=== PATIENT | male | born 1930 | race Caucasian/White ===

== ENCOUNTER → 2017-05-07 08:16 | Outpatient (CLI) | payer MEDICARE, OTHER ==
[2013-01-09 07:56] VITALS: BMI 23.9
== END | disposition home or self-care (01) ==
LOC: D.RT 08:16
DX: R94.2 Abnormal results of pulmonary function studies (principal)

== ENCOUNTER → 2017-05-29 07:25 | Outpatient (CLI) | payer MEDICARE, OTHER ==
[~2017-05-29] VITALS: Ht 172.7 cm; Wt 69.1 kg
--- NOTE | ~2017-05-29 | HEMODYNAMI ---
PATIENT:CHELO BURROUGHS MEDICAL RECORD: [id number] : [birth year] LOCATION:D.CAT ADMISSION DATE: 05/29/17 Generatedon:05/29/20179:31 Patient name: CHELO BURROUGHS Patient #: [id number] SSN: : 1930 Date of study: 05/29/2017 Page: Of Hemodynamic Procedure Report Patient Data Patient Demographics Procedure consent was obtained First Name: CHELO Gender: Male Last Name: HEIKE : 1930 Middle Initial: M Age: 86 year(s) Patient #: [id number] Race: Unknown Additional ID: [id number] Contact details [address]: [address] [place] [address] DRIVE State: [place] City: [place] Zip code: [address] Past Medical History Allergies Allergen Reaction Date Comments Reported Codeine 05/29/2017 Admission Admission Data Admission Date: 05/29/2017 Admission Time: 7:25 Lab Results Lab Result Date: 05/29/2017 Lab Result Time: 0:00 Biochemistry Name Units Result Min Max Creatinine mg/dl 6.8 --(----)-* 0.6 1.3 CBC Name Units Result Min Max Hemoglobin g/dl 12.1 *-(----)-- 13.5 17.5 Procedure Procedure Types Cath Procedure Diagnostic Procedure [facility] w/Coronaries Miscellaneous Procedures Moderate Sedation up to 15 minutes Procedure Description Procedure Date Procedure Date: 05/29/2017 Procedure Start Time: 9:22 Procedure End Time: 9:30 Procedure Staff Name Function Simone Espinal MD Performing Physician Alis Holt RT Scrub Jose Nicholas RT Scrub Kain Saravia RN Nurse Radha Bautista RT Monitor Procedure Data Cath Procedure Fluoroscopy Diagnostic fluoroscopy Total fluoroscopy Time: 1.3 time: 1.3 min min Diagnostic fluoroscopy Total fluoroscopy dose: 452 dose: 452 mGy mGy Contrast Material Contrast Material Type Amount (ml) Isovue 300 57 Entry Location Entry Primary Successful Side Size Upsize Upsize Entry Closure Mcdonough ccessful Closure Location (Fr) 1 (Fr) 2 (Fr) Remarks Device Remarks Radial Right 6 Fr Mechanical artery Short Compression Estimated blood loss: 5 ml Diagnostic catheters Device Type Used For End Catheter Placement Diagnostic Terumo 5Fr LV Angiography [place] 110cm catheter Diagnostic Terumo 5Fr Left Coronary [place] 110cm catheter Angiography Diagnostic Terumo 5Fr Right Coronary [place] 110cm catheter Angiography Procedure Complications No complications Procedure Medications Medication Administration Route Dosage Oxygen NC 2 l/min Heparin Flush Bag added to field 2 bags (1000units/500ml NS) 0.9% NaCl I.V. 100 ml/hr Radial Cocktail added to field 1 syringe (Verapomil 2mg/Nitro 400mcg/Heparin 1500units) Fentanyl I.V. 25 mcg Versed I.V. 0.5 mg Radial Cocktail I.A. 1 syringe (Verapomil 2mg/Nitro 400mcg/Heparin 1500units) Hemodynamics Rest HGB: 12.1 (g/dl) Heart Rate: 71 (bpm) Snapshots Pre Cath Intra NCS Post Cath Vital Signs Time Heart Resp SPO2 etCO2 [id number] NIBP (mmHg) Rhythm Pain Sedation Rate (ipm) (%) (mmHg) (mmHg) Status Level (bpm) 9:10:10 71 16 99 0 0 170/90(144) NSR 0 (11) 10(A) , No pain 9:14:27 68 16 100 0 0 154/87(119) NSR 0 (11) 10(A) , No pain 9:18:47 68 17 99 0 0 140/84(120) NSR 0 (11) 10(A) , No pain 9:23:03 69 18 97 0 0 141/78(112) NSR 0 (11) 9(A) , No pain 9:27:13 71 17 97 0 0 121/59(93) NSR 0 (11) 9(A) , No pain 9:29:12 73 17 97 0 0 122/65(92) NSR 0 (11) 9(A) , No pain Medications Time Medication Route Dose Verified Delivered Reason Notes E ffectiveness by by 9:11:12 Oxygen NC 2 l/min Kain Finnegan Per Manjit Saravia RN physician RN 9:11:21 Heparin Flush added 2 bags Kain Finnegan used for Bag to Manjit Saravia russian teacher (1000units/500ml field RN NS) 9:11:30 0.9% NaCl I.V. 100 Kain Finnegan Per ml/hr Manjit Saravia RN physician RN 9:11:39 Radial Cocktail added 1 Kain Finnegan used for (Verapomil to syringe Manjit Saravia RN procedure 2mg/Nitro field RN 400mcg/Heparin 1500units) 9:20:44 Fentanyl I.V. 25 mcg Kain Finnegan for sedation Manjit Saravia RN RN 9:20:53 Versed I.V. 0.5 mg Kain Finnegan for sedation Manjit Saravia RN RN 9:23:31 Radial Cocktail I.A. 1 Kain Nichols for (Verapomil syringe Manjit Espinal MD vasodilation 2mg/Nitro RN 400mcg/Heparin 1500units) Procedure Log Time Note 8:51:22 Kain Saravia RN sent for patient. Start room use. 8:56:23 Time tracking: Regular hours 8:56:28 Plan of Care:Hemodynamics will remain stable., Cardiac rhythm will remain stable., Comfort level will be maintained., Respiratory function will remain adequate., Patient/ family verbilizes understanding of procedure., Procedure tolerated without complication., Recovers from procedure without complications.. 9:01:38 Patient received from Pre/Post Procedure Room to [facility] 1 Alert and oriented. Tansferred to table in Supine position. 9:01:39 Warm blankets applied, and joaquin hugger turned on for patient comfort. 9:01:39 Correct patient and procedure confirmed by team. 9:01:41 Signed procedure consent form obtained from patient. 9:01:42 ECG and BP/O2 sat monitors applied to patient. 9:01:42 Full Disclosure recording started 9:08:15 Vital chart was started 9:11:12 Oxygen 2 l/min NC was administered by Kain Saravia RN; Per physician; 9:11:21 Heparin Flush Bag (1000units/500ml NS) 2 bags added to field was administered by Kain Saravia RN; used for procedure; 9:11:30 Baseline sample Acquired. 9:11:30 0.9% NaCl 100 ml/hr I.V. was administered by Kain Saravia RN; Per physician; 9:11:39 Radial Cocktail (Verapomil 2mg/Nitro 400mcg/Heparin 1500units) 1 syringe added to field was administered by Kain Saravia RN; used for procedure; 9:11:55 Rhythm: sinus rhythm 9:12:04 H&P Date Dictated: 05/28/2017 Within 30 days and on chart., H&P Addendum completed by physician on day of procedure. (MUST COMPLETE FOR ALL OUTPATIENTS). 9:12:05 Pre-procedure instructions explained to patient. 9:12:05 Pre-op teaching completed and patient verbalized understanding. 9:12:07 Family in waiting room. 9:12:08 Patient NPO since Midnight. 9:12:16 Patient allergic to Codeine 9:12:18 Is the patient allergic to Iodine/contrast media? No. 9:12:19 Is patient on blood thinner?No 9:12:30 Patient diabetic? No. 9:12:34 Previous problem with sedation/anesthesia? No ? 9:12:36 Snore? Yes 9:12:39 Sleep apnea? No 9:12:40 Deviated septum? No 9:12:40 Opens mouth fully? Yes 9:12:41 Sticks out tongue? Yes 9:12:45 Airway obstruction? Yes COPD 9:12:48 Dentures? No ? 9:12:53 Pre procedure: right dorsailis pedis pulse 1+ Palpable, but thready & weak; easily obliterated 9:12:54 Modified Michele's test Ulnar < 7 seconds 9:12:56 Patient pain scale 0/10 ?. 9:13:13 IV patent on arrival in left antecubital with 0.9% NaCl at KVO. 9:13:31 Lab Result : Creatinine 6.8 mg/dl 9:13:31 Lab Result : Hemoglobin 12.1 g/dl 9:13:46 Lab results completed and on chart. 9:13:48 Right Radial & Right Groin area was prepped with chlora-prep and draped in sterile fashion 9:13:49 Alarms reviewed by R. N. 9:13:50 Sharps counted by scrub and verified by R.N. 9:13:52 Use device set Radial Dx 9:13:53 Acist Syringe opened to sterile field. 9:13:53 Medline Cath Pack opened to sterile field. 9:13:54 Bag Decanter opened to sterile field. 9:13:54 Terumo 6Fr Slender Glidesheath opened to sterile field. 9:13:55 St Girish 260cm J .035 wire opened to sterile field. 9:13:55 Acist Hand Control opened to sterile field. 9:13:56 Acist Manifold opened to sterile field. 9:13:57 Tegaderm 4 x 4 opened to sterile field. 9:13:58 MBrace Wrist Support opened to sterile field. 9:17:14 Physician paged 9:18:05 Zero performed for pressure channel P1 9:20:12 Final Timeout: patient, procedure, and site verified with staff and physician. All members of the team are in agreement. 9:20:14 Right Radial site verified by team. 9:20:18 Physical assessment completed. ASA score P 2 - A patient with mild systemic disease as per Simone Espinal MD. 9:20:21 Sedation plan: IV Moderate Sedation Versed, Fentanyl 9:20:44 Fentanyl 25 mcg I.V. was administered by Kain Saravia RN; for sedation; 9::53 Versed 0.5 mg I.V. was administered by Kain Saravia RN; for sedation; 9:21:54 Procedure started. 9:22:03 Local anesthetic to right radial artery with Lidocaine 2% by Simone Espinal MD.INITIAL ACCESS ONLY 9:22:47 A 6 Fr Short sheath was inserted into the Right Radial artery 9:23:28 A Diagnostic Terumo 5Fr [place] 110cm catheter was advanced over the wire and used for LV Angiography. 9:23:31 Radial Cocktail (Verapomil 2mg/Nitro 400mcg/Heparin 1500units) 1 syringe I.A. was administered by Simone Espinal MD; for vasodilation; 9:24:21 LV gram done using LR 9:24:25 EF : 50 % 9:24:28 Injector settings: Ml/sec: 5, Volume: 15, 9:24:41 A Diagnostic Terumo 5Fr [place] 110cm catheter was advanced over the wire and used for Left Coronary Angiography. 9:26:04 A Diagnostic Terumo 5Fr [place] 110cm catheter was advanced over the wire and used for Right Coronary Angiography. 9:26:17 Catheter removed. 9:26:34 Sheath removed intact; hemostasis achieved with Mechanical Compression to the Right Radial artery. 9:26:36 Procedure ended.(Physican Out) 9:26:48 Fluoroscopy time 01.30 minutes. 9::51 Fluoroscopy dose: 452 mGy 9:26:51 Flurop Dose total: 452 9::58 Contrast amount:Isovue 300 57ml. 9::59 Sharps counted by scrub and verified by R.N. 9:27:01 TR band inflated with 12cc of air. 9:27:03 Insertion/operative site no bleeding no hematoma. 9:27:12 Post right radial artery:stable, clean and dry 9:27:14 Post Procedure Pulses reassessed and unchanged 9:27:17 Post-procedure physical assessment completed. ASA score P 2 - A patient with mild systemic disease as per Simone Espinal MD. 9:27:24 Post procedure rhythm: unchanged. 9:27:28 Estimated blood loss: 5 ml 9:27:29 Post procedure instruction explained to patient.Patient verbalizes understanding. 9:27:30 Patient needs reinforcement of post procedure teaching. 9:27:42 Procedure type changed to Cath procedure, Diagnostic procedure, LHC, LHC w/Coronaries, Miscellaneous Procedures, Moderate Sedation up to 15 minutes 9:27:47 Procedure Complication : No complications 9:27:50 See physician's report for complete and final results. 9:28:14 Terumo TR Band Standard opened to sterile field. 9:28:39 Procedure and supply charges have been captured, reviewed, submitted and are correct. 9:30:30 Vital chart was stopped 9:30:33 Report given to Pre/Post Procedure Room. 9:30:37 Patient transfered to Pre/Post Procedure Room with Stretcher. 9:30:45 Procedure ended. 9:30:45 Full Disclosure recording stopped 9:30:49 End room use (Document Last) Device Usage Item Name Manufacture Quantity Catalog Hospital Part Current Minimal Lot# / Number Charge Number Stock Stock Serial# Code Acist Acist 1 18864 [id number] [id number] [id number] 20 Syringe [employer] Inc Medline Cardinal 1 [id number] 63166 073725 5 Cath Pack Health Bag Microtek 1 [id number] 93820 707350 5 [employer] Terumo 6Fr Terumo 1 [id number] 210596 895606 035330 [address] Girish 1 484773 665109 167515 923443 30 260cm J .035 wire Acist Hand Acist 1 55413 095631 933599 106320 5 Control [employer] Inc Acist Acist 1 41252 477060 463077 390290 5 Manifold Medical [employer] Inc Tegaderm 4 3M 1 1626W 974756 401644 858625 5 x 4 MBrace Advanced 1 140-0250-00 601710 44547 960689 5 Wrist Vascular Support Dynamics Diagnostic Terumo 1 53-5463 406744 337794 704540 5 Terumo 5Fr [place] 110cm catheter Terumo TR Terumo 1 [id number] 433973 759094 602018 40 Band Standard Signature Audit [place] Stage Time Signature Unsigned Intra-Procedure 05/29/2017 Rdaha 9:31:00 AM Counts RT(R) Signatures Monitor : Radha Signature : Counts RT Date : Time : [place] [address] [place] [address]
[~2017-05-29 07:25] MED LIST: COREG12.5 MG PO; FUROSEMIDE40 MG PO; IPRAT-ALBUT 0.5-3 ML UPD; NEURONTIN 300300 MG PO; PAMELOR10 MG PO; PULMICORT0.5 MG/21 INH; RENA-VITE TABL0.8 MG PO; RENVELA800 MG PO; SINGULAIR10 MG PO; ZOCOR10 MG PO
[2017-05-29 08:00] VITALS: BP 173/76; Ht 172.7 cm; Wt 69.1 kg
[2017-05-29 08:03] LABS: BASOPHILS 0.3 % (0-2); EOSINOPHILS 7.3 % (0-7); HEMATOCRIT 36.6 % (42.0-54.0); HEMOGLOBIN 12.1 g/dL (13.5-17.5); IMMATURE GRANULOCYTES 0.1 % (0-5); LYMPHOCYTES 12.5 % (15-50); MCH 31.8 pg (26.0-34.0); MCHC 33.1 g/dL (31.0-37.0); MCV 96.1 fL (80.0-100.0); MEAN PLATELET VOLUME 9.5 fL (7.4-10.4); MONOCYTES 11.1 % (2-11); NEUTROPHILS 68.7 % (40-80); PLATELET COUNT 177 10x3/uL (130-400); RBC 3.81 10x6/uL (4.20-6.10); RDW 12.1 % (11.5-14.5); WBC 7.3 10x3/uL (4.8-10.8)
[2017-05-29 08:19] LABS: ANION GAP 14.2 mmol/L (8-16); CARBON DIOXIDE 27.1 mmol/L (21.0-32.0); CREATININE - SERUM 6.3 mg/dL (0.6-1.3); POTASSIUM - SERUM 4.3 mmol/L (3.5-5.1)
--- NOTE | 2017-05-29 10:17 | NUR ---
0955 RESTING WITH EYES CLOSED, NC APPLIED 2L WHILE SLEEPING. NO RESP DISTRESS. NSR RATE 61 W NO C/O CHEST PAIN. PULSES PALP X 4. R WRIST TR BAND C/D/I WITH NO HEMATOMA OR BLEEDING. EATING ICE CHIPS WITH NO C/O NAUSEA. FAMILY AT BEDSIDE.
--- NOTE | 2017-05-29 10:45 | NUR ---
1045 VSS WITH CHEST PAIN DENIED REPOSITIONED TO SITTING WITH HOB UP 30 DEGREES. SANDWICH AND SODA TO BEDSIDE NAUSEA DENIED 1100 2 CC AIR REMOVED FROM TR BAND WITH NO BLEEDING NO HEMATOMA NOTED. 1115 2 CC AIR REMOVED FROM TR BAND NO BLEEDING NOTED
--- NOTE | 2017-05-29 11:22 | NUR ---
4 CC AIR REMOVED FROM TR BAND WITH NO BLEEDING NO HEMATOMA NOTED. PIV REMOVED WITH DRESSING APPLIED. VERBAL AND WRITTEN DISCHARGE GONE OVER WITH PATIENT AND FAMILY. UP TO GET DRESSED FOR DISCHARGE HOME
--- NOTE | 2017-05-29 12:03 | NUR ---
TRANSPORTED VIA WC TO PARKING FOR DISCHARGE HOME WITH FAMILY CHEST PAIN DENIED R/WRIST CDI
--- NOTE | 2017-05-30 12:22 | OP ---
PATIENT NAME: CHELO BURROUGHS MEDICAL RECORD: [id number] :[birth year] LOCATION:D.CAT ADMISSION DATE: SURGEON: NANCY PATTON MD DATE OF OPERATION: 05/29/2017 PROCEDURES: 1. Left heart catheterization. 2. Selective coronary angiography. 3. Left ventriculogram. INDICATION: Angina and coronary artery disease. PROCEDURE IN DETAIL: After informed consent was obtained and after detailed explanation of risks, benefits as well as alternative therapies, the patient elected to proceed with angiogram and heart catheterization. The right radial area was prepped and draped in normal sterile fashion. The right radial artery was cannulated via modified Seldinger technique with the placement of 5-Yi sheath. All catheters exchanged through this sheath. FINDINGS: The left ventriculogram was performed in standard 30-degree LR view reveals preserved cardiac wall motion, ejection fraction 50%. SELECTIVE CORONARY ANGIOGRAPHY: Left main, left anterior descending, left circumflex, right coronary are all with only mild irregularities, no flow-limiting stenosis. OVERALL IMPRESSION: Minimal coronary artery disease is present, only mild irregularities, no flow-limiting stenosis. Chest pain is noncardiac in etiology. TRANSINT:[id number] Voice Confirmation ID: [id number] DOCUMENT ID: [id number] NANCY PATTON MD at 1222 CC: [id number] DICTATION DATE: 05/29/17928 [employer]NON FIRE DIRECTION SPECIALIST: 05/29/17 1056 DEP CLI 05/29/[address] [address]
== END | disposition home or self-care (01) ==
LOC: D.CATH 07:25
PROVIDERS: Internal Medicine Interventional Cardiology
DX: I25.119 Atherosclerotic heart disease of native coronary artery with unspecified angina pectoris (principal); R06.02 Shortness of breath; I10 Essential (primary) hypertension; E78.5 Hyperlipidemia, unspecified; Z01.812 Encounter for preprocedural laboratory examination

== ENCOUNTER 2017-09-11 08:08 | Inpatient (IN) | payer MEDICARE, OTHER ==
[~2017-09-11] VITALS: Ht 172.7 cm; Wt 70.1 kg
--- NOTE | ~2017-09-11 | HP ---
PATIENT: CHELO BURROUGHS MEDICAL RECORD: [id number] ACCOUNT: [id number] LOCATION:[address] : [birth year] ADMISSION DATE: 09/11/17 HISTORY AND PHYSICAL EXAMINATION ADMISSION HISTORY AND PHYSICAL HISTORY OF PRESENT ILLNESS: An 86-year-old male brought in by EMS after a fall. No reported loss of consciousness - unknown downtime, C-collar is in place. He was cleared for spinal injury with a CT of the head and neck. The patient is an end-stage renal patient - on peritoneal dialysis, history of COPD, hypertension, and has been on peritoneal dialysis 2+ years. CURRENT MEDICATIONS: Listed as Coreg, gabapentin, simvastatin, nortriptyline, Lasix, Claritin, Renvela, Eryn-Lizet, Singulair, updrafts 3 different types twice daily. PAST SURGICAL HISTORY: He has had a general decline per his since starting dialysis but acute episodes of falls, weakness in the last several days with a fall this morning with reported loss of consciousness. REVIEW OF SYSTEMS: GENERAL: Denies any change in appetite. No reported change in weight. HEENT: Denies cephalalgia. Denies dysphagia, dizziness, and visual change prior to his fall. CARDIOVASCULAR: Denies chest pain, denies palpitations. PULMONARY: Denies hemoptysis, denies night sweats. GASTROINTESTINAL: Denies hematemesis, hematochezia or melena. GENITOURINARY: Denies any significant changes, is on peritoneal dialysis. MUSCULOSKELETAL: Generalized weakness, progressively worse. PHYSICAL EXAMINATION: VITAL SIGNS: Temp 96.9, blood pressure is 157/69, heart rate 90, respirations 20, O2 sats 95% with oxygen at 2 liters via nasal cannula. HEENT: Head normocephalic, atraumatic. Eyes: Pupils are equally round and reactive. Ears: Canals patent. TMs are intact. Nose: Nares patent without drainage. Throat: No erythema, no exudates. NECK: Supple. No lymphadenopathy, no JVD. HEART: Regular rate and rhythm. No S3, no S4, no rub. LUNGS: Clear to auscultation bilaterally. Breathing is nonlabored. ABDOMEN: Soft, nontender. Bowel sounds all 4 quadrants. EXTREMITIES: Present times 4, no edema. NEUROLOGIC: No focal deficits appreciated. LABORATORY DATA: EKG shows sinus rhythm with PACs, left bundle-branch block, rate of 92. CT of the head and neck reported as negative. CBC: Hemoglobin 11.8, hematocrit 34.4. Chemistry shows a creatinine of 9.7, potassium 3.9, sodium 136, chloride 96, and bicarbonate 26.2. LFTs normal. HISTORY AND PHYSICAL [id number] CHELO BURROUGHS ASSESSMENT AND PLAN: Generalized weakness, progressive decline, end-stage renal disease - on peritoneal dialysis, fall with reported syncope, superficial skin tears, and mild anemia. The patient is admitted. We will consult nephrology. Supportive care. Consult case management. Resume home medications. TRANSINT:[id number] Voice Confirmation ID: [id number] DOCUMENT ID: [id number] CHANDU VELIZ DO at 0739 CC: [id number] DICTATION DATE: 09/11/171899 DERMATOLOGY PROCEDURAL PHYSICIAN: 09/11/172038 ADM IN [facility] [address] [id number]
--- NOTE | ~2017-09-11 | DS ---
PATIENT:CHELO BURROUGHS :[birth year] MEDICAL RECORD: [id number] DISCHARGE SUMMARY ADMISSION DATE: 09/12/17 DISCHARGE DATE: 09/13/17 ADMISSION DIAGNOSES: Generalized weakness, progressive decline, end-stage renal disease, on peritoneal dialysis, fall with reported syncope, superficial skin tears, mild anemia. DISCHARGE DIAGNOSES: Generalized weakness, progressive decline, end-stage renal disease, on peritoneal dialysis, fall with reported syncope, superficial skin tears, chronic anemia. CONSULTS: Dr. Thakur, nephrology. HOSPITAL COURSE: The patient had an eventful hospital course. He was cleared for head and neck injury with CT. Nephrology consulted for his peritoneal dialysis. With his progressive decline, nephrology arranged for rehab placement with nephrology monitoring his peritoneal dialysis. The patient discharged to rehab in stable condition. Agree with nephrology assessment. See chart for further details. TRANSINT:[id number] Voice Confirmation ID: [id number] DOCUMENT ID: [id number] CHANDU VELIZ DO at 0809 CC: [id number] DICTATION DATE: 10/12/17 1507 AUTOMOTIVE FUEL INJECTION SERVICER: 10/13/17 0949 DIS IN 09/13/17 [facility] [address] [place] [address]
[2017-09-11 08:54] LABS: BASOPHILS 0.2 % (0-2); EOSINOPHILS 1.3 % (0-7); HEMATOCRIT 34.4 % (42.0-54.0); HEMOGLOBIN 11.8 g/dL (13.5-17.5); IMMATURE GRANULOCYTES 1.3 % (0-5); LYMPHOCYTES 8.6 % (15-50); MCH 32.2 pg (26.0-34.0); MCHC 34.3 g/dL (31.0-37.0); MCV 93.7 fL (80.0-100.0); MEAN PLATELET VOLUME 10.2 fL (7.4-10.4); NEUTROPHILS 83.6 % (40-80); PLATELET COUNT 143 10x3/uL (130-400); RBC 3.67 10x6/uL (4.20-6.10); RDW 12.4 % (11.5-14.5); WBC 12.3 10x3/uL (4.8-10.8)
[2017-09-11 09:11] LABS: ALBUMIN 2.6 g/dL (3.4-5.0); ANION GAP 17.7 mmol/L (8-16); BILIRUBIN - TOTAL 0.61 mg/dL (0.2-1.3); CALCIUM 8.5 mg/dL (8.5-10.1); CARBON DIOXIDE 26.2 mmol/L (21.0-32.0); CREATININE - SERUM 9.7 mg/dL (0.6-1.3); POTASSIUM - SERUM 3.9 mmol/L (3.5-5.1); PROTEIN - SERUM 5.2 g/dL (6.4-8.2)
[2017-09-11 09:58] LABS: APPEARANCE HAZY (CLEAR); COLOR YELLOW (YELLOW); GLUCOSE 50 mg/dL (NEGATIVE); KETONE NEGATIVE (NEGATIVE); NITRITE NEGATIVE (NEGATIVE); PROTEIN TRACE mg/dL (NEGATIVE); SPECIFIC GRAVITY 1.015 (1.005-1.020)
[2017-09-11 09:59] LABS: BILIRUBIN NEGATIVE (NEGATIVE); UROBILINOGEN NORMAL (NORMAL)
[2017-09-11 10:01] LABS: BACTERIA FEW /hpf (NONE SEEN); EPITHELIAL CELLS 0-5 /hpf (0-5); WHITE CELLS - URINE 0-5 /hpf (0-5)
[2017-09-11 10:02] LABS: AMORPHOUS SEDIMENT >1+ /lpf (NONE SEEN)
[2017-09-11] MEDS ORDERED: NORVASC2.5 MG PO (20:44)
[2017-09-11] MEDS ORDERED: VITAMIN D31000 UNIT PO (20:45)
[2017-09-11] MEDS ORDERED: STERAPRED DS 1210 MG PO (20:46)
[2017-09-11] MEDS ORDERED: MEGACE400 MG/10 PO (20:46)
[2017-09-11 23:25] VITALS: BP 119/72
[2017-09-12] VITALS (7 sets, daily range): BP systolic 96–153; BP diastolic 30–72; Ht 172.7 cm; Wt 70.1 kg
[2017-09-12 04:55] LABS: BASOPHILS 0.1 % (0-2); EOSINOPHILS 2.1 % (0-7); HEMOGLOBIN 11.6 g/dL (13.5-17.5); IMMATURE GRANULOCYTES 0.9 % (0-5); LYMPHOCYTES 8.3 % (15-50); MCHC 34.1 g/dL (31.0-37.0); MCV 93.7 fL (80.0-100.0); MEAN PLATELET VOLUME 10.2 fL (7.4-10.4); MONOCYTES 12.5 % (2-11); NEUTROPHILS 76.1 % (40-80); PLATELET COUNT 141 10x3/uL (130-400); RBC 3.63 10x6/uL (4.20-6.10); RDW 12.4 % (11.5-14.5); WBC 12.8 10x3/uL (4.8-10.8)
[2017-09-12 05:10] LABS: ANION GAP 18.1 mmol/L (8-16); CALCIUM 8.4 mg/dL (8.5-10.1); CREATININE - SERUM 10.7 mg/dL (0.6-1.3); POTASSIUM - SERUM 4.3 mmol/L (3.5-5.1)
[2017-09-12 05:14] LABS: CARBON DIOXIDE 26.2 mmol/L (21.0-32.0)
[2017-09-13 00:29] VITALS: BP 115/46
[2017-09-13 04:17] VITALS: BP 100/58
[2017-09-13 06:29] LABS: BASOPHILS 0 % (0-2); EOSINOPHILS 2.9 % (0-7); HEMATOCRIT 33.5 % (42.0-54.0); HEMOGLOBIN 11.4 g/dL (13.5-17.5); LYMPHOCYTES 4.6 % (15-50); MCH 31.8 pg (26.0-34.0); MCV 93.3 fL (80.0-100.0); MEAN PLATELET VOLUME 10.1 fL (7.4-10.4); MONOCYTES 13.5 % (2-11); PLATELET COUNT 125 10x3/uL (130-400); RBC 3.59 10x6/uL (4.20-6.10); RDW 12.3 % (11.5-14.5); WBC 12.1 10x3/uL (4.8-10.8)
[2017-09-13 06:57] LABS: ANION GAP 16.9 mmol/L (8-16); CALCIUM 8.6 mg/dL (8.5-10.1); CARBON DIOXIDE 28.1 mmol/L (21.0-32.0); MAGNESIUM - SERUM 1.9 mg/dL (1.8-2.4); PHOSPHOROUS 8.5 mg/dL (2.5-4.9)
[2017-09-13 08:00] VITALS: BP 120/55
[2017-09-13 12:00] VITALS: BP 124/79
[2017-09-13] MEDS ORDERED: CEFTRIAXONE1 G/VIAL IM (14:24)
[2017-09-13] MEDS ORDERED: BROVANA15 MCG/2 M INH (14:24)
[2017-09-13] MEDS ORDERED: FEXOFENADINE HC60 MG PO (14:24)
[2017-09-13] MEDS ORDERED: RESTORIL7.5 MG PO (14:24)
[2017-09-13] MEDS ORDERED: DULCOLAX10 MG/SUPP RC (14:25)
[2017-09-13] MEDS ORDERED: PROCALAMINE I1000 ML IV (14:25)
[2017-09-13] MEDS ORDERED: FLORAJEN3 CAPS460 MG PO (14:25)
[2017-09-13] MEDS ORDERED: [UNRECOGNIZED DRUG - OTHER] IP (14:37)
[2017-09-13 16:00] VITALS: BP 115/66
== END 2017-09-13 20:07 | DRG 682 ==
LOC: D.ER 08:08 → D.M2 17:40 → OBSVTIME 17:40 → D.M2 09-12 11:35
PROVIDERS: Emergency Medicine; Family Medicine
DX: I12.0 Hypertensive chronic kidney disease with stage 5 chronic kidney disease or end stage renal disease (principal); N18.6 End stage renal disease; J18.9 Pneumonia, unspecified organism; J44.0 Chronic obstructive pulmonary disease with (acute) lower respiratory infection; Z99.2 Dependence on renal dialysis; D64.9 Anemia, unspecified; I44.7 Left bundle-branch block, unspecified; R13.10 Dysphagia, unspecified; G62.9 Polyneuropathy, unspecified; W19.XXXA Unspecified fall, initial encounter; Z91.81 History of falling

== ENCOUNTER 2017-09-13 20:34 | Inpatient (IN) | payer MEDICARE, OTHER ==
[~2017-09-13] VITALS: Ht 172.7 cm; Wt 68.9 kg
--- NOTE | ~2017-09-13 | DS ---
PATIENT:CHELO BURROUGHS :[birth year] MEDICAL RECORD: [id number] DISCHARGE SUMMARY ADMISSION DATE: 09/13/17 DISCHARGE DATE: 09/22/17 This is a discharge dated 09/22/2017 from inpatient rehab. 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 SECONDARY DIAGNOSES: 1. End-stage renal disease, on peritoneal dialysis. 2. COPD. 3. Peripheral vascular disease. 4. Peripheral neuropathy. 5. Hypertension. 6. Anemia of chronic disease. 7. Pneumonia. 8. Oropharyngeal dysphagia. 9. Protein-calorie malnutrition. 10. Generalized weakness. 11. Upper respiratory infection. CONSULTANTS FOLLOWING THIS HOSPITALIZATION: Nephrology with Dr. Thakur. HOSPITAL COURSE: Full H&P is located elsewhere on the chart on this 87-year-old male who was admitted to inpatient rehab for physical therapy and occupational therapy to improve gait, transfer skills, bed mobility, and activities of daily living to a modified independent level. He was evaluated by PT and OT and their plans of care were followed. He required long-term care for observation and assessment and medication administration. He was seen by speech therapy for management of oropharyngeal dysphagia. Diet recommendations were followed. He continued on peritoneal dialysis during this hospital stay and was followed by nephrology, Dr. Thakur. Electrolytes were managed by protocol. He remained on appropriate home medications. He developed symptoms of upper respiratory infection and was started on Rocephin for antibiotic coverage. He was cooperative with therapies, but not making much progress. There was discussion with family members regarding potential hospice. He was evaluated by hospice and accepted for admission to a home hospice facility and was considered stable for discharge on 09/22/2017. DISCHARGE MEDICATIONS: As per discharge medication reconciliation. DISCHARGE DISPOSITION: The patient is discharged home. He will continue his current diet and level of activity and will follow with the hospice medical orderly for further care. At least 30 minutes was spent in this discharge activity. TRANSINT:[id number] Voice Confirmation ID: [id number] DOCUMENT ID: [id number] Dictated By: RUTH KU I have interviewed/examined the above patient and agree with these documented findings. DISCHARGE SUMMARY REPORT [id number] HEIKEJOS EANTONIOCHELOJESUS KIM MD at 1802 at 1437 CC: [id number] DICTATION DATE: 10/20/17 1600 CUT OFF SAWYER: 10/21/17 0215 DIS IN 09/22/17 [facility] [address] [id number]
[~2017-09-13 20:34] MED LIST changes: +BROVANA15 MCG/2 M INH; +CEFTRIAXONE1 G/VIAL IM; +DULCOLAX10 MG/SUPP RC; +FEXOFENADINE HC60 MG PO; +FLORAJEN3 CAPS460 MG PO; +MEGACE400 MG/10 PO; +NORVASC2.5 MG PO; +PROCALAMINE I1000 ML IV; +RESTORIL7.5 MG PO; +STERAPRED DS 1210 MG PO; +VITAMIN D31000 UNIT PO; +[UNRECOGNIZED DRUG - OTHER] IP
[2017-09-13 21:18] VITALS: BP 145/56; BMI 23.3
[2017-09-14 08:30] VITALS: BP 109/68
[2017-09-14 09:20] LABS: BASOPHILS 0 % (0-2); EOSINOPHILS 1.4 % (0-7); HEMATOCRIT 31.3 % (42.0-54.0); HEMOGLOBIN 10.7 g/dL (13.5-17.5); IMMATURE GRANULOCYTES 0.7 % (0-5); LYMPHOCYTES 5.2 % (15-50); MCH 31.9 pg (26.0-34.0); MCHC 34.2 g/dL (31.0-37.0); MCV 93.4 fL (80.0-100.0); MEAN PLATELET VOLUME 10.2 fL (7.4-10.4); MONOCYTES 13.7 % (2-11); PLATELET COUNT 126 10x3/uL (130-400); RBC 3.35 10x6/uL (4.20-6.10); RDW 12.3 % (11.5-14.5); WBC 10.1 10x3/uL (4.8-10.8)
[2017-09-14 09:44] LABS: ANION GAP 15.9 mmol/L (8-16); CALCIUM 8.5 mg/dL (8.5-10.1); CARBON DIOXIDE 26.1 mmol/L (21.0-32.0); CREATININE - SERUM 10.1 mg/dL (0.6-1.3)
[2017-09-14 12:08] VITALS: BP 117/64
[2017-09-14 12:49] VITALS: Ht 172.7 cm; Wt 68.9 kg
[2017-09-14 19:33] VITALS: BP 119/81
[2017-09-15 08:09] VITALS: BP 157/60
[2017-09-15 19:39] VITALS: BP 149/75
[2017-09-16 18:17] VITALS: BP 162/68
[2017-09-16 19:43] VITALS: BP 168/71
[2017-09-17 08:11] LABS: BASOPHILS 0.1 % (0-2); EOSINOPHILS 1.9 % (0-7); HEMATOCRIT 31.3 % (42.0-54.0); IMMATURE GRANULOCYTES 1.1 % (0-5); LYMPHOCYTES 7.5 % (15-50); MCH 31.8 pg (26.0-34.0); MCHC 35.1 g/dL (31.0-37.0); MCV 90.5 fL (80.0-100.0); MONOCYTES 16.6 % (2-11); NEUTROPHILS 72.8 % (40-80); RBC 3.46 10x6/uL (4.20-6.10); RDW 12.1 % (11.5-14.5); WBC 12.3 10x3/uL (4.8-10.8)
[2017-09-17 08:13] LABS: PLATELET COUNT 171 10x3/uL (130-400)
[2017-09-17 08:19] LABS: ANION GAP 20.8 mmol/L (8-16); CALCIUM 8.6 mg/dL (8.5-10.1); CARBON DIOXIDE 23.7 mmol/L (21.0-32.0); CREATININE - SERUM 8.7 mg/dL (0.6-1.3); POTASSIUM - SERUM 4.5 mmol/L (3.5-5.1)
[2017-09-17 08:39] VITALS: BP 119/70
[2017-09-17 19:00] VITALS: BP 160/94
[2017-09-18 07:57] VITALS: BP 126/54
[2017-09-18 19:30] VITALS: BP 126/67
[2017-09-19 08:33] VITALS: BP 101/71
[2017-09-19 12:55] VITALS: BP 122/62
[2017-09-19 23:13] VITALS: BP 110/53
[2017-09-20 06:07] VITALS: BP 124/76
[2017-09-20 06:51] LABS: BASOPHILS 0.2 % (0-2); HEMATOCRIT 32.6 % (42.0-54.0); HEMOGLOBIN 11.2 g/dL (13.5-17.5); IMMATURE GRANULOCYTES 1.5 % (0-5); LYMPHOCYTES 12.4 % (15-50); MCH 31.7 pg (26.0-34.0); MCHC 34.4 g/dL (31.0-37.0); MCV 92.4 fL (80.0-100.0); MONOCYTES 7.3 % (2-11); NEUTROPHILS 76.6 % (40-80); PLATELET COUNT 176 10x3/uL (130-400); RBC 3.53 10x6/uL (4.20-6.10); RDW 12.3 % (11.5-14.5); WBC 12.9 10x3/uL (4.8-10.8)
[2017-09-20 07:23] LABS: ALBUMIN 2.7 g/dL (3.4-5.0); ANION GAP 19.5 mmol/L (8-16); BILIRUBIN - TOTAL 0.3 mg/dL (0.2-1.3); CALCIUM 8.9 mg/dL (8.5-10.1); CARBON DIOXIDE 24.5 mmol/L (21.0-32.0); CREATININE - SERUM 8.2 mg/dL (0.6-1.3); MAGNESIUM - SERUM 2.1 mg/dL (1.8-2.4); PHOSPHOROUS 7.2 mg/dL (2.5-4.9); PROTEIN - SERUM 5.2 g/dL (6.4-8.2)
[2017-09-20 12:15] VITALS: BP 113/71
[2017-09-20 18:00] VITALS: BP 109/55
[2017-09-21 00:23] VITALS: BP 126/62
[2017-09-21 05:34] VITALS: BP 131/79
[2017-09-21 06:40] LABS: ALBUMIN 2.6 g/dL (3.4-5.0); ANION GAP 15.8 mmol/L (8-16); BILIRUBIN - TOTAL 0.3 mg/dL (0.2-1.3); CALCIUM 8.9 mg/dL (8.5-10.1); CREATININE - SERUM 8.3 mg/dL (0.6-1.3); POTASSIUM - SERUM 3.8 mmol/L (3.5-5.1); PROTEIN - SERUM 5.4 g/dL (6.4-8.2)
[2017-09-21 08:15] VITALS: BP 104/59
[2017-09-21 12:06] VITALS: BP 80/48
[2017-09-21 16:04] VITALS: BP 102/052
[2017-09-21 20:09] VITALS: BP 104/52
[2017-09-22] VITALS: BP 117/45
[2017-09-22 04:32] VITALS: BP 125/56
[2017-09-22 08:22] VITALS: BP 144/57
[2017-09-22] MEDS ORDERED: MEGACE40 MG PO (10:56)
[2017-09-22] MEDS ORDERED: REGLAN5 MG PO (10:57)
[2017-09-22] MEDS ORDERED: LASIX80 MG PO (10:57)
[2017-09-22] MEDS ORDERED: LIDOCAINE HC10 MG/M3 IM (10:58)
[2017-09-22] MEDS ORDERED: ULTRAM50 MG PO (10:59)
== END 2017-09-22 11:41 | disposition home health service (06) | DRG 91 ==
LOC: D.REHAB 20:34
PROVIDERS: Emergency Medicine; Internal Medicine Nephrology
DX: G72.89 Other specified myopathies (principal); N18.6 End stage renal disease; I12.0 Hypertensive chronic kidney disease with stage 5 chronic kidney disease or end stage renal disease; Z99.2 Dependence on renal dialysis; R13.12 Dysphagia, oropharyngeal phase; I95.1 Orthostatic hypotension; Z66 Do not resuscitate; J44.9 Chronic obstructive pulmonary disease, unspecified; D63.1 Anemia in chronic kidney disease; I73.9 Peripheral vascular disease, unspecified; G62.9 Polyneuropathy, unspecified; M62.81 Muscle weakness (generalized)